=== PATIENT | female | born 1990 | race Caucasian/White ===

== ENCOUNTER 2017-10-08 22:09 | Inpatient (IN) | payer OTHER ==
[2017-10-08] MEDS: AMPICILLIN 2 GM/NS (PMX) 100 ML IV (02:30)
[2017-10-08] MEDS ORDERED: LACTATED RINGER'S 500 ML IV (23:06)
[2017-10-08] MEDS ORDERED: LACTATED RINGER'S 1,000 ML IV (23:06)
[2017-10-08] MEDS ORDERED: OXYTOCIN 30 UNITS/LR 500 ML IV ×2 (23:30)
[2017-10-08] MEDS ORDERED: CARBOPROST 250 MCG INJ IM (23:30)
[2017-10-08] MEDS ORDERED: BUTORPHANOL 2 MG INJ IV ×2 (23:30)
[2017-10-08] MEDS ORDERED: LIDOCAINE 1% (MPF) 30 ML INJ INJ (23:30)
[2017-10-08] MEDS ORDERED: HYDROCODONE/APAP (5/325) TAB PO (23:30)
[2017-10-08] MEDS ORDERED: MISOPROSTOL 200 MCG TAB PR (23:30)
[2017-10-08] MEDS ORDERED: METHYLERGONOVINE 0.2 MG INJ IM (23:30)
[2017-10-08] MEDS ORDERED: IBUPROFEN 600 MG TAB PO (23:30)
[2017-10-08] MEDS ORDERED: OXYTOCIN 10 UNIT INJ (23:40)
[2017-10-09 00:05] LABS: ADD MAN DIFF? NO
[2017-10-09] MEDS: OXYTOCIN 30 UNITS/LR 500 ML IV ×3 (00:07→05:14)
[2017-10-09 00:08] LABS: WHITE BLOOD COUNT 12.4 10^3/ul (4.8-10.8)
[2017-10-09 00:08] LABS: BASOPHILS % 0.2 % (0.0-2.0); EOSINOPHILS % 0.3 % (0.0-7.0); HEMATOCRIT 39.1 % (37.0-47.0); HEMOGLOBIN 13.3 g/dl (12.0-16.0); LYMPHOCYTES # 2.3 10^3/ul (0.8-2.9); LYMPHOCYTES % 18.6 % (15.0-51.0); MEAN CORPUSCULAR HEMOGLOBIN 27.4 pg (29.0-33.0); MEAN CORPUSCULAR VOLUME 80.5 fl (82.0-101.0); MEAN PLATELET VOLUME 11.9 fl (7.4-10.4); MONOCYTE # 0.8 10^3/ul (0.3-0.9); MONOCYTES % 6.7 % (0.0-11.0); NEUTROPHIL # 9.1 10^3/ul (1.6-7.5); NEUTROPHILS % 73.6 % (39.0-77.0); PLATELET COUNT 212 10^3/UL (140-415); RED BLOOD COUNT 4.86 10^6/ul (4.20-5.40); RED CELL DISTRIBUTION WIDTH 13.9 % (11.5-14.5)
[2017-10-09 00:31] LABS: ALANINE AMINOTRANSFERASE 14 IU/L (13-69); ALBUMIN 3.7 g/dl (3.3-4.9); ALBUMIN/GLOBULIN RATIO 0.97; ALKALINE PHOSPHATASE 195 IU/L (42-121); ANION GAP 18 (8-16); ASPARTATE AMINO TRANSFERASE 22 IU/L (15-46); BLOOD UREA NITROGEN 12 mg/dl (7-20); CALCIUM 9.5 mg/dl (8.4-10.2); CARBON DIOXIDE 17 mmol/L (21-31); CHLORIDE 106 mmol/L (97-110); CREATININE 0.67 mg/dl (0.44-1.00); GLUCOSE 96 mg/dl (70-220); POTASSIUM 4.2 mmol/L (3.5-5.1); SODIUM 137 mmol/L (135-144); TOTAL PROTEIN 7.5 g/dl (6.1-8.1); URIC ACID 5.4 mg/dl (3.1-7.9)
[2017-10-09 00:45] LABS: PROTIME 12.2 Sec (11.9-14.9)
[2017-10-09 00:46] LABS: PARTIAL THROMBOPLASTIN TIME 29.7 Sec (25.0-35.0)
[2017-10-09 01:01] LABS: HEPATITIS B SURFACE ANTIGEN NEGATIVE (NEGATIVE)
[2017-10-09] MEDS: LACTATED RINGER'S 1,000 ML IV* ×3 (01:14→17:14)
[2017-10-09] MEDS ORDERED: MISOPROSTOL 200 MCG TAB PR (01:30)
[2017-10-09] MEDS ORDERED: OXYTOCIN 30 UNITS/LR 500 ML IV (01:30)
[2017-10-09] MEDS ORDERED: METHYLERGONOVINE 0.2 MG INJ IM (01:30)
[2017-10-09] MEDS ORDERED: CARBOPROST 250 MCG INJ IM (01:30)
[2017-10-09] MEDS ORDERED: IBUPROFEN 600 MG TAB (01:59)
[2017-10-09] MEDS: IBUPROFEN 600 MG TAB PO ×4 (02:02→23:38)
[2017-10-09] MEDS ORDERED: AMPICILLIN 1 GM/NS (PMX) 50 ML IV (03:30)
[2017-10-09] MEDS: BENZOCAINE 20% 56 ML SPRAY TOP (05:15)
[2017-10-09] MEDS: OXYCODONE/ASPIRIN (4.88/325) TAB PO (05:15)
[2017-10-09] MEDS: INFLUENZA VIRUS VACCINE 0.5 ML SYG IM* (11:54)
[2017-10-09 20:09] LABS: RAPID PLASMA REAGIN NONREACTIVE (NR)
[2017-10-09] MEDS: LANOLIN 7 GM TUBE TOP (23:39)
[2017-10-10] MEDS: IBUPROFEN 600 MG TAB PO ×2 (05:34→11:59)
[2017-10-10 08:50] LABS: ADD MAN DIFF? NO
[2017-10-10 08:53] LABS: BASOPHILS % 0.4 % (0.0-2.0); EOSINOPHILS # 0.1 10^3/ul (0.0-0.5); HEMOGLOBIN 11.7 g/dl (12.0-16.0); LYMPHOCYTES # 1.3 10^3/ul (0.8-2.9); LYMPHOCYTES % 14.6 % (15.0-51.0); MEAN CORPUSCULAR HEMOGLOBIN 27.5 pg (29.0-33.0); MEAN CORPUSCULAR HGB CONC 33.4 g/dl (32.0-37.0); MEAN CORPUSCULAR VOLUME 82.4 fl (82.0-101.0); MEAN PLATELET VOLUME 11.1 fl (7.4-10.4); MONOCYTE # 0.6 10^3/ul (0.3-0.9); MONOCYTES % 6.7 % (0.0-11.0); NEUTROPHIL # 6.9 10^3/ul (1.6-7.5); NEUTROPHILS % 76.9 % (39.0-77.0); PLATELET COUNT 163 10^3/UL (140-415); RED BLOOD COUNT 4.25 10^6/ul (4.20-5.40); RED CELL DISTRIBUTION WIDTH 14.3 % (11.5-14.5)
[2017-10-10] MEDS: DIPHTH/TET/ACEL PERTUSS (ADULT) 0.5 ML VIAL IM* (09:52)
[2017-10-10 10:31] LABS: RUBELLA ANTIBODY - IGG 6.02 index
[2017-10-11] MEDS ORDERED: DIPHTH/TET/ACEL PERTUSS (ADULT) 0.5 ML VIAL IM* (09:00)
[2017-10-12 11:13] LABS: RUBELLA ANTIBODY - IGM <20.00 AU/mL
== END 2017-10-10 18:48 | disposition home or self-care (01) | DRG 775 ==
LOC: OBT 22:09 → PP1 10-09 02:31 → L-D 22:11 → OBT 23:04 → L-D 22:45
PROC: 4A1HXCZ Monitoring of Products of Conception, Cardiac Rate, External Approach (ICD-10-PCS; 2017-10-08)
PROC: 10E0XZZ Delivery of Products of Conception, External Approach (ICD-10-PCS; principal; 2017-10-09)
PROC: 0UQMXZZ Repair Vulva, External Approach (ICD-10-PCS; 2017-10-09)
PROC: 3E0234Z Introduction of Serum, Toxoid and Vaccine into Muscle, Percutaneous Approach (ICD-10-PCS; 2017-10-09)
PROC: 3E0234Z Introduction of Serum, Toxoid and Vaccine into Muscle, Percutaneous Approach (ICD-10-PCS; 2017-10-10)
DX: O70.0 First degree perineal laceration during delivery (principal); Z23 Encounter for immunization; Z37.0 Single live birth; Z3A.39 39 weeks gestation of pregnancy
CPT/HCPCS: 80053; 84560; 85025; 85384; 85610; 85730; 86592; 86762; 86850; 86900; 86901; 87340; 90686; 90715; 99464